=== PATIENT | female | born 1940 | race Caucasian/White ===

== ENCOUNTER → 2016-06-26 | Outpatient (CLI) | payer OTHER ==
[~2016-06-26] MED LIST: GLIP-116 OR; LISI30TA36 OR; METF-312 OR; METO-158 OR; SIMV-13 OR
[2016-06-26 08:44] LABS: Basophils # (auto) 0 uL; Basophils % (auto) 0.6 % (0.0-2.0); Eosinophils # (auto) 0.1 uL; Eosinophils % (auto) 1.4 % (0.0-7.0); Hemoglobin 12.9 g/dL (12.2-16.2); Lymphocytes % (auto) 22.9 % (10.0-50.0); Mean Corpuscular Hgb Conc. 31.6 g/dL (32.0-36.0); Mean Platelet Volume 9.8 fL (7.4-10.4); Monocytes # (auto) 0.6 uL; Neutrophils # (auto) 5.9 uL; Neutrophils % (auto) 68.1 % (37.0-80.0); Platelet Count (auto) 235 10^3/uL (140-450); Red Cell Distribution Width 13.5 % (11.6-16.0); White Blood Cell 8.7 10^3/uL (4.4-10.8)
[2016-06-26 09:17] LABS: Albumin 4.1 g/dL (3.4-5.0); BUN/Creatinine Ratio 13.9; Bilirubin, Total 0.5 mg/dL (0.2-1.0); Calcium 9.2 mg/dL (8.5-10.1); Potassium 3.7 mmol/L (3.5-5.1); Total Protein 7.5 g/dL (6.4-8.2)
== END | disposition home or self-care (01) ==
LOC: LAB 06:48
PROVIDERS: ATTEND Internal Medicine
DX: E78.4 Other hyperlipidemia (principal); E11.9 Type 2 diabetes mellitus without complications; I10 Essential (primary) hypertension; Z12.10 Encounter for screening for malignant neoplasm of intestinal tract, unspecified
CPT/HCPCS: 36415; 80053; 80061; 82043; 82270; 83036; 84443; 85025

== ENCOUNTER → 2016-09-25 | Outpatient (CLI) | payer OTHER ==
[2016-09-25 10:31] LABS: Albumin 4.3 g/dL (3.4-5.0); BUN/Creatinine Ratio 20.3; Bilirubin, Total 0.4 mg/dL (0.2-1.0); Calcium 9.7 mg/dL (8.5-10.1); Potassium 4.1 mmol/L (3.5-5.1); Total Protein 7.7 g/dL (6.4-8.2)
== END | disposition home or self-care (01) ==
LOC: LAB 06:30
PROVIDERS: ATTEND Internal Medicine
DX: E11.21 Type 2 diabetes mellitus with diabetic nephropathy (principal); I10 Essential (primary) hypertension; E78.4 Other hyperlipidemia
CPT/HCPCS: 36415; 80053; 83036

== ENCOUNTER → 2017-03-05 | Outpatient (CLI) | payer OTHER ==
[~2017-03-05] MED LIST changes: -METF-312 OR; +METF-370 OR
[2017-03-05 10:30] LABS: Albumin 4.1 g/dL (3.4-5.0); Calcium 9.5 mg/dL (8.5-10.1); Potassium 4.2 mmol/L (3.5-5.1)
[2017-03-05 10:34] LABS: BUN/Creatinine Ratio 21.4
[2017-03-05 10:36] LABS: Bilirubin, Total 0.5 mg/dL (0.2-1.0); Total Protein 7.3 g/dL (6.4-8.2)
== END | disposition home or self-care (01) ==
LOC: LAB 07:23
PROVIDERS: ATTEND Internal Medicine
DX: E11.21 Type 2 diabetes mellitus with diabetic nephropathy (principal); E78.4 Other hyperlipidemia
CPT/HCPCS: 36415; 80053; 83036

== ENCOUNTER → 2017-08-01 | Outpatient (CLI) | payer OTHER ==
[2017-08-01 08:11] LABS: Basophils # (auto) 0.1 uL; Basophils % (auto) 0.8 % (0.0-2.0); Eosinophils # (auto) 0.1 uL; Eosinophils % (auto) 1.8 % (0.0-7.0); Hemoglobin 13.2 g/dL (12.2-16.2); Lymphocytes # (auto) 2.5 uL; Lymphocytes % (auto) 37.8 % (10.0-50.0); Mean Corpuscular Hgb Conc. 33.9 g/dL (32.0-36.0); Mean Corpuscular Volume 94.3 fL (80.0-100.0); Monocytes # (auto) 0.7 uL; Monocytes % (auto) 10.8 % (0.0-12.0); Neutrophils # (auto) 3.2 uL; Neutrophils % (auto) 48.8 % (37.0-80.0); Nucleated Red Blood Cells % 0.1 %; Platelet Count (auto) 221 10^3/uL (140-450); Red Blood Cells 4.13 10^6/uL (4.0-5.20); Red Cell Distribution Width 13.2 % (11.8-14.3); White Blood Cell 6.6 10^3/uL (4.4-10.8)
[2017-08-01 08:40] LABS: Albumin 4.1 g/dL (3.4-5.0); BUN/Creatinine Ratio 21.2; Bilirubin, Total 0.6 mg/dL (0.2-1.0); Calcium 9.8 mg/dL (8.5-10.1); Total Protein 7.3 g/dL (6.4-8.2)
== END | disposition home or self-care (01) ==
LOC: LAB 07:03
PROVIDERS: ATTEND Internal Medicine
DX: Z12.11 Encounter for screening for malignant neoplasm of colon (principal); I10 Essential (primary) hypertension; E11.21 Type 2 diabetes mellitus with diabetic nephropathy; E78.4 Other hyperlipidemia
CPT/HCPCS: 36415; 80053; 80061; 82043; 82270; 82306; 83036; 84443; 85025

== ENCOUNTER → 2017-10-02 | Outpatient (CLI) | payer OTHER | END | disposition home or self-care (01) | LOC: LAB 10:00 | PROVIDERS: ATTEND Physician Assistant | DX: L72.0 Epidermal cyst (principal); I10 Essential (primary) hypertension; E78.5 Hyperlipidemia, unspecified; E11.9 Type 2 diabetes mellitus without complications ==

== ENCOUNTER → 2018-07-22 | Outpatient (CLI) | payer OTHER ==
[2018-07-22 09:52] LABS: Basophils # (auto) 0 uL; Basophils % (auto) 0.7 % (0.0-2.0); Eosinophils # (auto) 0.1 uL; Eosinophils % (auto) 2.2 % (0.0-7.0); Hematocrit 39.7 % (36.0-46.0); Hemoglobin 13.3 g/dL (12.2-16.2); Lymphocytes # (auto) 1.8 uL; Lymphocytes % (auto) 36.6 % (10.0-50.0); Mean Corpuscular Hemoglobin 31.9 pg (28.0-32.0); Mean Corpuscular Hgb Conc. 33.4 g/dL (32.0-36.0); Mean Corpuscular Volume 95.4 fL (80.0-100.0); Monocytes # (auto) 0.4 uL; Neutrophils # (auto) 2.6 uL; Neutrophils % (auto) 51.5 % (37.0-80.0); Platelet Count (auto) 216 10^3/uL (140-450); Red Blood Cells 4.16 10^6/uL (4.0-5.20); Red Cell Distribution Width 13.5 % (11.8-14.3)
[2018-07-22 11:23] LABS: Potassium 3.9 mmol/L (3.5-5.1)
[2018-07-22 12:20] LABS: BUN/Creatinine Ratio 19.2; Bilirubin, Total 0.5 mg/dL (0.2-1.0); Calcium 9.5 mg/dL (8.5-10.1); Total Protein 7.3 g/dL (6.4-8.2)
== END | disposition home or self-care (01) ==
LOC: LAB 07:48
PROVIDERS: ATTEND Internal Medicine
DX: Z00.00 Encounter for general adult medical examination without abnormal findings (principal); Z12.11 Encounter for screening for malignant neoplasm of colon; I10 Essential (primary) hypertension; E78.5 Hyperlipidemia, unspecified
CPT/HCPCS: 36415; 80053; 80061; 82043; 82274; 83036; 84443; 85025

== ENCOUNTER → 2019-05-01 | Outpatient (CLI) | payer OTHER ==
[~2019-05-01] MED LIST changes: -GLIP-116 OR; +GLIP10TA9 OR; -LISI30TA36 OR; +LISI30TA4 OR
[2019-05-01 11:15] LABS: Urine Bacteria FEW /hpf (None Seen); Urine Blood Negative /uL (Negative); Urine Specific Gravity 1.007 (1.001-1.035); Urine WBC 49 /hpf (0 - 5)
[2019-05-01 11:23] LABS: Basophils # (auto) 0.1 uL; Basophils % (auto) 1.1 % (0.0-2.0); Eosinophils # (auto) 0.1 uL; Eosinophils % (auto) 1.2 % (0.0-7.0); Hematocrit 40.3 % (36.0-46.0); Hemoglobin 13.4 g/dL (12.2-16.2); Lymphocytes # (auto) 1.7 uL; Lymphocytes % (auto) 25.7 % (10.0-50.0); Mean Corpuscular Hemoglobin 32.3 pg (28.0-32.0); Mean Corpuscular Hgb Conc. 33.3 g/dL (32.0-36.0); Monocytes # (auto) 0.6 uL; Monocytes % (auto) 8.5 % (0.0-12.0); Neutrophils # (auto) 4.1 uL; Neutrophils % (auto) 63.5 % (37.0-80.0); Platelet Count (auto) 231 10^3/uL (140-450); Red Blood Cells 4.15 10^6/uL (4.0-5.20); Red Cell Distribution Width 13.9 % (11.8-14.3); White Blood Cell 6.5 10^3/uL (4.4-10.8)
[2019-05-01 11:37] LABS: Albumin 3.9 g/dL (3.4-5.0); Calcium 8.9 mg/dL (8.5-10.1); Potassium 4.1 mmol/L (3.5-5.1)
[2019-05-01 11:43] LABS: BUN/Creatinine Ratio 18.5; Bilirubin, Total 0.6 mg/dL (0.2-1.0); Total Protein 7.3 g/dL (6.4-8.2)
[2019-05-01 11:48] LABS: Free T4 (Free Thyroxine) 1.33 ng/dL (0.89-1.76)
[2019-05-01 11:49] LABS: Folate (Folic Acid) 11.1 ng/mL (5.38-24)
[2019-05-02 04:05] LABS: RPR Non Reactive (Non Reactive)
== END | disposition home or self-care (01) ==
LOC: LAB 10:30
PROVIDERS: ATTEND Internal Medicine
DX: R41.3 Other amnesia (principal)
CPT/HCPCS: 36415; 80053; 81001; 82306; 82607; 82746; 84439; 84443; 85025; 85652; 86592

== ENCOUNTER → 2020-03-23 | Outpatient (CLI) | payer OTHER ==
[2020-03-23 07:58] LABS: Basophils # (auto) 0.1 10 ^3/uL (0-0.2); Basophils % (auto) 1.1 % (0.0-2.0); Eosinophils # (auto) 0.1 10 ^3/uL (0-0.8); Eosinophils % (auto) 1.3 % (0.0-7.0); Hematocrit 39.1 % (36.0-46.0); Lymphocytes # (auto) 1.8 10 ^3/uL (0.4-5.4); Lymphocytes % (auto) 28.1 % (10.0-50.0); Mean Corpuscular Hgb Conc. 33.2 g/dL (32.0-36.0); Mean Corpuscular Volume 96.3 fL (80.0-100.0); Monocytes # (auto) 0.7 10 ^3/uL (0-1.3); Monocytes % (auto) 10.6 % (0.0-12.0); Neutrophils # (auto) 3.7 10 ^3/uL (1.6-8.6); Neutrophils % (auto) 58.9 % (37.0-80.0); Platelet Count (auto) 282 10^3/uL (140-450); Red Blood Cells 4.06 10^6/uL (4.0-5.20); Red Cell Distribution Width 14.6 % (11.8-14.3); White Blood Cell 6.3 10^3/uL (4.4-10.8)
[2020-03-23 08:25] LABS: Albumin 3.9 g/dL (3.4-5.0); Potassium 4.1 mmol/L (3.5-5.1)
[2020-03-23 08:44] LABS: BUN/Creatinine Ratio 15.7; Bilirubin, Total 0.8 mg/dL (0.2-1.0); Calcium 9.3 mg/dL (8.5-10.1); Total Protein 7.4 g/dL (6.4-8.2)
== END | disposition home or self-care (01) ==
LOC: LAB 07:22
PROVIDERS: ATTEND Internal Medicine
DX: E11.22 Type 2 diabetes mellitus with diabetic chronic kidney disease (principal); N18.9 Chronic kidney disease, unspecified; E11.69 Type 2 diabetes mellitus with other specified complication; F03.90 Unspecified dementia, unspecified severity, without behavioral disturbance, psychotic disturbance, mood disturbance, and anxiety; D51.9 Vitamin B12 deficiency anemia, unspecified; E55.9 Vitamin D deficiency, unspecified; E78.5 Hyperlipidemia, unspecified
CPT/HCPCS: 36415; 80053; 80061; 82043; 82306; 82607; 83036; 84443; 85025

== ENCOUNTER → 2020-06-23 | Outpatient (CLI) | payer OTHER ==
[2020-06-23 11:30] LABS: Urine Bacteria MANY /hpf (None Seen); Urine Blood TRACE /uL (Negative); Urine Specific Gravity 1.013 (1.001-1.035); Urine WBC 233 /hpf (0 - 5)
== END | disposition home or self-care (01) ==
LOC: LAB 07:28
PROVIDERS: ATTEND Internal Medicine
DX: D51.9 Vitamin B12 deficiency anemia, unspecified (principal); E55.9 Vitamin D deficiency, unspecified
CPT/HCPCS: 81001; 82306; 82607

== ENCOUNTER 2020-07-13 15:59 | Emergency (ER) | payer OTHER ==
[~2020-07-13] VITALS: Ht 154.9 cm; Wt 54.4 kg
[2020-07-13 15:59] VITALS: BP 163/77
== END 2020-07-13 18:43 | disposition home or self-care (01) ==
LOC: ER 15:59
DX: S09.90XA Unspecified injury of head, initial encounter (principal); E11.9 Type 2 diabetes mellitus without complications; Z79.899 Other long term (current) drug therapy; W19.XXXA Unspecified fall, initial encounter; Y93.89 Activity, other specified; Y92.89 Other specified places as the place of occurrence of the external cause; Y99.8 Other external cause status
CPT/HCPCS: 70450; 70486

== ENCOUNTER 2020-10-02 23:45 | Inpatient (IN) | payer OTHER ==
[~2020-10-02] VITALS: Ht 157.5 cm; Wt 54.4 kg
[2020-10-03 00:33] LABS: Basophils # (auto) 0.1 10 ^3/uL (0-0.2); Basophils % (auto) 0.7 % (0.0-2.0); Eosinophils # (auto) 0.1 10 ^3/uL (0-0.8); Eosinophils % (auto) 0.6 % (0.0-7.0); Hematocrit 38.6 % (36.0-46.0); Hemoglobin 12.9 g/dL (12.2-16.2); Lymphocytes # (auto) 1.8 10 ^3/uL (0.4-5.4); Lymphocytes % (auto) 19.7 % (10.0-50.0); Mean Corpuscular Hemoglobin 31.9 pg (28.0-32.0); Mean Corpuscular Hgb Conc. 33.5 g/dL (32.0-36.0); Mean Corpuscular Volume 95.2 fL (80.0-100.0); Monocytes # (auto) 0.8 10 ^3/uL (0-1.3); Monocytes % (auto) 8.9 % (0.0-12.0); Neutrophils # (auto) 6.6 10 ^3/uL (1.6-8.6); Neutrophils % (auto) 70.1 % (37.0-80.0); Platelet Count (auto) 251 10^3/uL (140-450); Red Blood Cells 4.06 10^6/uL (4.0-5.20); Red Cell Distribution Width 13.7 % (11.8-14.3); White Blood Cell 9.4 10^3/uL (4.4-10.8)
[2020-10-03 00:49] LABS: BUN/Creatinine Ratio 18.2; Potassium 3.4 mmol/L (3.5-5.1)
[2020-10-03] MEDS ORDERED: HALOPERIDOL LACTATE 5 MG/ML INJ VIAL IM ONE (02:30)
[2020-10-03] MEDS ORDERED: diphenhdrAMINE HCL 50 MG/1 ML VL IM ONE (02:30)
[2020-10-03] MEDS ORDERED: SODIUM CHLORIDE 0.9% 1,000 ML IV ONE (08:45)
[2020-10-03] MEDS ORDERED: MORPHINE SULF INJ 2 MG/ML SYRINGE 1ML IV PRN ×3 (15:30→17:15)
[2020-10-03] MEDS ORDERED: NITROGLYCERIN 0.4 MG SL TAB SL PRN ×2 (15:30→17:15)
[2020-10-03] MEDS ORDERED: POTASSIUM CHL 20 Meq TABLET PO ONE (17:15)
[2020-10-03] MEDS ORDERED: HYDROcodone-ACET 5/325MG TAB PO PRN (17:15)
[2020-10-03] MEDS ORDERED: DEXTROSE (50%) 50ML SYRG IV PRN (17:15)
[2020-10-03] MEDS ORDERED: ALUM & MAG HYDROX-SIMETH LIQ(MAALOX) 30 ML PO PRN (17:15)
[2020-10-03] MEDS ORDERED: QUEtiapine FUMARATE 25 MG TAB PO ONE (17:15)
[2020-10-03] MEDS ORDERED: cefTRIAXone 1GM/50ML D5W 50 ML IV ONE (17:15)
[2020-10-03] MEDS ORDERED: ONDANSETRON HCL 4 MG/2 ML VIAL IV PRN (17:15)
[2020-10-03] MEDS ORDERED: HALOPERIDOL LACTATE 5 MG/ML INJ VIAL IM PRN ×2 (17:15→22:00)
[2020-10-03] MEDS ORDERED: DOCUSATE SOD 100 MG CAP PO PRN (17:15)
[2020-10-03] MEDS ORDERED: LORazepam 0.5 MG TAB PO PRN (17:15)
[2020-10-03] MEDS ORDERED: ACETAMINOPHEN 325 MG TAB PO PRN (17:15)
[2020-10-03 17:30] LABS: Alcohol, Urine < 3.0 mg/dL (0-10); Amphetamine Screen, Urine NEGATIVE (NEGATIVE); Barbiturate Scree,Urine NEGATIVE (NEGATIVE); Benzodiazephine Screen, Urine NEGATIVE (NEGATIVE); Cannabinoid Screen, Urine NEGATIVE (NEGATIVE); Cocaine Screen, Urine NEGATIVE (NEGATIVE); Opiate Scree,Urine NEGATIVE (NEGATIVE); Phencyclidine Screen, Urine NEGATIVE (NEGATIVE)
[2020-10-03] MEDS ORDERED: CYANOCOBALAMIN (B-12) 1000 MCG/1 ML VIAL SUBCUT ONE (17:30)
[2020-10-03] MEDS ORDERED: ENOXAPARIN SOD 40 MG/0.4 ML SYRINGE SC SCH (18:00)
[2020-10-03 18:02] LABS: Urine Bacteria NONE SEEN /hpf (None Seen); Urine Blood 1+ /uL (Negative); Urine Hyaline Cast FEW /lpf (0 - 2); Urine Mucus FEW (None Seen); Urine Specific Gravity 1.015 (1.001-1.035); Urine WBC 1 /hpf (0 - 5)
[2020-10-03] MEDS: SODIUM CHLORIDE 0.9% 1,000 ML IV SCH (18:04)
[2020-10-03 18:06] LABS: Cholesterol 197 mg/dL (< 200); HDL Cholesterol 78 mg/dL (40-59); LDL Cholesterol 100 mg/dL (< 100); Triglycerides 56 mg/dL (< 150)
[2020-10-03 19:50] VITALS: BP 133/78
[2020-10-03 20:14] VITALS: BP 133/78
[2020-10-03] MEDS ORDERED: SIMV-13 PO (21:29)
[2020-10-03] MEDS ORDERED: LISI30TA4 PO (21:29)
[2020-10-03] MEDS ORDERED: METF-370 PO (21:29)
[2020-10-03] MEDS ORDERED: DONE1TAB88 PO (21:29)
[2020-10-03] MEDS ORDERED: GLIP2.5T28 PO (21:29)
[2020-10-03] MEDS ORDERED: METO-289 PO (21:29)
[2020-10-03] MEDS: ATORVASTATIN 20 MG TAB PO SCH (21:53)
[2020-10-03] MEDS: ACCU-CHEK COMFORT CURVE STRIP VI SCH (21:54)
[2020-10-03] MEDS: METOPROLOL TARTRATE 50 MG TAB PO SCH (21:54)
[2020-10-03] MEDS ORDERED: QUEtiapine FUMARATE 25 MG TAB PO SCH (22:00)
[2020-10-03] MEDS: MIRTAZAPINE 30 MG TAB PO SCH (22:07)
[2020-10-03] MEDS: InsuLIN REG 1unit/0.01ml Soln (100units/ml) SC SCH (22:09)
[2020-10-04 04:38] VITALS: BP 114/59
[2020-10-04] MEDS: InsuLIN REG 1unit/0.01ml Soln (100units/ml) SC SCH ×4 (06:04→21:27)
[2020-10-04] MEDS: ACCU-CHEK COMFORT CURVE STRIP VI SCH ×4 (06:07→21:23)
[2020-10-04 06:43] LABS: Basophils # (auto) 0.1 10 ^3/uL (0-0.2); Basophils % (auto) 0.8 % (0.0-2.0); Eosinophils # (auto) 0.1 10 ^3/uL (0-0.8); Eosinophils % (auto) 1.2 % (0.0-7.0); Hematocrit 40.5 % (36.0-46.0); Hemoglobin 13.7 g/dL (12.2-16.2); Lymphocytes # (auto) 1.9 10 ^3/uL (0.4-5.4); Lymphocytes % (auto) 26.8 % (10.0-50.0); Mean Corpuscular Hemoglobin 31.9 pg (28.0-32.0); Mean Corpuscular Hgb Conc. 33.8 g/dL (32.0-36.0); Mean Corpuscular Volume 94.3 fL (80.0-100.0); Monocytes # (auto) 0.7 10 ^3/uL (0-1.3); Monocytes % (auto) 10.1 % (0.0-12.0); Neutrophils # (auto) 4.3 10 ^3/uL (1.6-8.6); Neutrophils % (auto) 61.1 % (37.0-80.0); Nucleated Red Blood Cells % 0.1 %; Platelet Count (auto) 238 10^3/uL (140-450); Red Blood Cells 4.29 10^6/uL (4.0-5.20); Red Cell Distribution Width 13.6 % (11.8-14.3); White Blood Cell 7.1 10^3/uL (4.4-10.8)
[2020-10-04 07:00] LABS: INR 1.03 (0.9-1.15)
[2020-10-04 07:09] LABS: Potassium 3.9 mmol/L (3.5-5.1)
[2020-10-04 07:20] LABS: Albumin 3.3 g/dL (3.4-5.0); BUN/Creatinine Ratio 25.9; Bilirubin, Total 0.7 mg/dL (0.2-1.0); Calcium 8.8 mg/dL (8.5-10.1); Phosphorus 4.6 mg/dL (2.5-4.90); Total Protein 6.3 g/dL (6.4-8.2)
[2020-10-04] MEDS: cefTRIAXone 1GM/50ML D5W 50 ML IV SCH (08:36)
[2020-10-04 09:00] VITALS: BP 104/57
[2020-10-04] MEDS ORDERED: POTASSIUM CHL 20 Meq TABLET PO SCH (10:00)
[2020-10-04] MEDS ORDERED: LISINOPRIL 20 MG TAB PO SCH (10:00)
[2020-10-04] MEDS: CYANOCOBALAMIN 500 MCG TAB PO SCH (10:10)
[2020-10-04] MEDS: THIAMINE 100mg/ml INJ (200mg/2ml VIAL) IV SCH (10:10)
[2020-10-04] MEDS: SODIUM CHLORIDE 0.9% 1,000 ML IV SCH (10:13)
[2020-10-04] MEDS: METOPROLOL TARTRATE 50 MG TAB PO SCH ×2 (10:13→21:23)
[2020-10-04] MEDS ORDERED: CYANOCOBALAMIN (B-12) 1000 MCG/1 ML VIAL SUBCUT ONE (11:30)
[2020-10-04] MEDS ORDERED: CHOLECALCIFEROL (VITD3) 2,000 UNIT CAP/TAB PO ONE (11:30)
[2020-10-04 13:00] VITALS: BP 95/46
[2020-10-04 17:00] VITALS: BP 139/69
[2020-10-04 21:00] VITALS: BP 141/68
[2020-10-04] MEDS: ATORVASTATIN 20 MG TAB PO SCH (21:22)
[2020-10-04] MEDS: MIRTAZAPINE 30 MG TAB PO SCH (21:23)
[2020-10-05 05:00] VITALS: BP 104/57
[2020-10-05] MEDS: InsuLIN REG 1unit/0.01ml Soln (100units/ml) SC SCH ×4 (06:05→22:20)
[2020-10-05] MEDS: ACCU-CHEK COMFORT CURVE STRIP VI SCH ×4 (06:07→22:18)
[2020-10-05] MEDS: SODIUM CHLORIDE 0.9% 1,000 ML IV SCH (06:29)
[2020-10-05] MEDS: cefTRIAXone 1GM/50ML D5W 50 ML IV SCH (08:35)
[2020-10-05 09:00] VITALS: BP 103/56
[2020-10-05] MEDS: THIAMINE 100mg/ml INJ (200mg/2ml VIAL) IV SCH (10:00)
[2020-10-05] MEDS: LISINOPRIL 20 MG TAB PO SCH (10:00)
[2020-10-05] MEDS: CHOLECALCIFEROL (VITD3) 2,000 UNIT CAP/TAB PO SCH (10:47)
[2020-10-05] MEDS: CYANOCOBALAMIN 500 MCG TAB PO SCH (10:47)
[2020-10-05] MEDS: METOPROLOL TARTRATE 50 MG TAB PO SCH (10:47)
[2020-10-05 13:00] VITALS: BP 101/41
[2020-10-05 17:00] VITALS: BP 105/64
[2020-10-05] MEDS: LORazepam 2MG/ML-1ML VIAL IV PRN (19:56)
[2020-10-05 22:00] VITALS: BP 147/88
[2020-10-05] MEDS ORDERED: MIRTAZAPINE 30 MG TAB PO SCH (22:00)
[2020-10-05] MEDS: ATORVASTATIN 20 MG TAB PO SCH (22:18)
[2020-10-06] MEDS: LORazepam 2MG/ML-1ML VIAL IV PRN (01:56)
[2020-10-06] MEDS: ACCU-CHEK COMFORT CURVE STRIP VI SCH ×4 (06:30→21:57)
[2020-10-06] MEDS: InsuLIN REG 1unit/0.01ml Soln (100units/ml) SC SCH ×4 (06:32→22:00)
[2020-10-06 09:00] VITALS: BP 141/81
[2020-10-06] MEDS ORDERED: LORazepam 2MG/ML-1ML VIAL IV PRN (11:00)
[2020-10-06] MEDS: THIAMINE 100mg/ml INJ (200mg/2ml VIAL) IV SCH (11:00)
[2020-10-06] MEDS: CYANOCOBALAMIN 500 MCG TAB PO SCH (12:52)
[2020-10-06] MEDS: CHOLECALCIFEROL (VITD3) 2,000 UNIT CAP/TAB PO SCH (12:54)
[2020-10-06] MEDS: LISINOPRIL 20 MG TAB PO SCH (12:55)
[2020-10-06 13:00] VITALS: BP 122/62
[2020-10-06 17:00] VITALS: BP 96/56
[2020-10-06 18:41] VITALS: BP 101/51
[2020-10-06] MEDS: ATORVASTATIN 20 MG TAB PO SCH (22:06)
[2020-10-06] MEDS: QUEtiapine FUMARATE 25 MG TAB PO SCH (22:06)
[2020-10-07] MEDS: ACCU-CHEK COMFORT CURVE STRIP VI SCH ×4 (06:00→22:00)
[2020-10-07] MEDS: InsuLIN REG 1unit/0.01ml Soln (100units/ml) SC SCH ×4 (06:05→22:05)
[2020-10-07 09:00] VITALS: BP 102/66
[2020-10-07] MEDS: LISINOPRIL 20 MG TAB PO SCH (10:00)
[2020-10-07] MEDS: THIAMINE 100mg/ml INJ (200mg/2ml VIAL) IV SCH (10:51)
[2020-10-07] MEDS: QUEtiapine FUMARATE 25 MG TAB PO SCH ×2 (10:52→22:34)
[2020-10-07] MEDS: CHOLECALCIFEROL (VITD3) 2,000 UNIT CAP/TAB PO SCH (10:52)
[2020-10-07] MEDS: CYANOCOBALAMIN 500 MCG TAB PO SCH (10:52)
[2020-10-07 12:50] VITALS: BP 118/62
[2020-10-07 17:00] VITALS: BP 130/60
[2020-10-07 21:38] VITALS: BP 127/70
[2020-10-07] MEDS: ATORVASTATIN 20 MG TAB PO SCH (22:34)
[2020-10-08 05:06] VITALS: BP 119/73
[2020-10-08] MEDS: InsuLIN REG 1unit/0.01ml Soln (100units/ml) SC SCH ×3 (06:46→17:00)
[2020-10-08] MEDS: ACCU-CHEK COMFORT CURVE STRIP VI SCH ×3 (06:46→17:00)
[2020-10-08 08:56] VITALS: BP 104/55
[2020-10-08] MEDS ORDERED: CYANOCOBALAMIN 500 MCG TAB PO SCH (10:00)
[2020-10-08] MEDS: LISINOPRIL 20 MG TAB PO SCH (10:00)
[2020-10-08] MEDS: THIAMINE 100mg/ml INJ (200mg/2ml VIAL) IV SCH (10:00)
[2020-10-08] MEDS: QUEtiapine FUMARATE 25 MG TAB PO SCH (10:20)
[2020-10-08] MEDS: CHOLECALCIFEROL (VITD3) 2,000 UNIT CAP/TAB PO SCH (10:20)
[2020-10-08 13:00] VITALS: BP 98/52
[2020-10-08 15:44] VITALS: BP 98/52
== END 2020-10-08 18:30 | disposition hospice, home (50) | DRG 71 ==
LOC: EDUNIT# 23:45 → ER 23:45 → EDBD 23:45 → TELE 10-03 17:11 → TELE-CENTR 10-03 19:54 → CENTRAL 10-04 20:43
PROVIDERS: ADMIT Hospitalist; ATTEND Internal Medicine
DX: G93.41 Metabolic encephalopathy (principal); I16.9 Hypertensive crisis, unspecified; F03.90 Unspecified dementia, unspecified severity, without behavioral disturbance, psychotic disturbance, mood disturbance, and anxiety; R62.7 Adult failure to thrive; E87.6 Hypokalemia; E53.8 Deficiency of other specified B group vitamins; I10 Essential (primary) hypertension; Z51.5 Encounter for palliative care; E11.65 Type 2 diabetes mellitus with hyperglycemia; E78.5 Hyperlipidemia, unspecified; Z79.84 Long term (current) use of oral hypoglycemic drugs; Z20.822 Contact with and (suspected) exposure to COVID-19; F29 Unspecified psychosis not due to a substance or known physiological condition; F10.20 Alcohol dependence, uncomplicated; Z82.0 Family history of epilepsy and other diseases of the nervous system; Z82.49 Family history of ischemic heart disease and other diseases of the circulatory system; Z83.3 Family history of diabetes mellitus; F17.200 Nicotine dependence, unspecified, uncomplicated; Z79.899 Other long term (current) drug therapy
CPT/HCPCS: 36415; 70450; 71045; 80048; 80053; 80061; 80307; 81001; 82306; 82607; 82962; 83036; 83735; 83880; 84100; 84443; 84484; 85025; 85610; 85730; 87040; 87086; 87426; 93005; 96365; 96372; G0378; J0696; J1815

== ENCOUNTER 2020-10-18 13:04 | Inpatient (IN) | payer OTHER ==
[~2020-10-18] VITALS: Ht 157.5 cm; Wt 55.5 kg
[~2020-10-18 13:04] MED LIST changes: +DONE1TAB88 PO; -GLIP10TA9 OR; +GLIP2.5T28 PO; -LISI30TA4 OR; +LISI30TA4 PO; -METF-370 OR; +METF-370 PO; -METO-158 OR; +METO-289 PO; -SIMV-13 OR; +SIMV-13 PO
[2020-10-18 14:15] LABS: Basophils # (auto) 0.1 10 ^3/uL (0-0.2); Basophils % (auto) 1.1 % (0.0-2.0); Eosinophils # (auto) 0.1 10 ^3/uL (0-0.8); Hemoglobin 11.7 g/dL (12.2-16.2); Lymphocytes # (auto) 1.7 10 ^3/uL (0.4-5.4); Lymphocytes % (auto) 24.8 % (10.0-50.0); Mean Corpuscular Hemoglobin 32.3 pg (28.0-32.0); Mean Corpuscular Hgb Conc. 34.3 g/dL (32.0-36.0); Mean Corpuscular Volume 94.1 fL (80.0-100.0); Monocytes # (auto) 0.7 10 ^3/uL (0-1.3); Monocytes % (auto) 10.2 % (0.0-12.0); Neutrophils # (auto) 4.2 10 ^3/uL (1.6-8.6); Neutrophils % (auto) 61.9 % (37.0-80.0); Platelet Count (auto) 205 10^3/uL (140-450); Red Blood Cells 3.61 10^6/uL (4.0-5.20); Red Cell Distribution Width 13.1 % (11.8-14.3); White Blood Cell 6.8 10^3/uL (4.4-10.8)
[2020-10-18 14:26] LABS: Lactic Acid w/Reflex 2.2 mmol/L (0.4-2.0)
[2020-10-18 14:48] LABS: Urine WBC None Seen /hpf (0 - 5)
[2020-10-18 15:17] LABS: Albumin 3.4 g/dL (3.4-5.0); BUN/Creatinine Ratio 17.8; Potassium 4.4 mmol/L (3.5-5.1)
[2020-10-18 15:20] LABS: Bilirubin, Total 0.2 mg/dL (0.2-1.0); Total Protein 6.3 g/dL (6.4-8.2)
[2020-10-18 15:31] LABS: Urine Bacteria NONE SEEN /hpf (None Seen); Urine Blood Negative /uL (Negative); Urine Specific Gravity 1.016 (1.001-1.035)
[2020-10-18] MEDS ORDERED: SODIUM CHLORIDE 0.9% 1,000 ML IV ONE (15:45)
[2020-10-18] MEDS ORDERED: LORazepam 2MG/ML-1ML VIAL IV ONE (16:30)
[2020-10-18] MEDS ORDERED: LORazepam 2MG/ML-1ML VIAL ONE (16:41)
[2020-10-18] MEDS ORDERED: LORazepam 2MG/ML-1ML VIAL IV PRN (17:15)
[2020-10-18] MEDS ORDERED: DEXTROSE (50%) 50ML SYRG IV PRN (17:30)
[2020-10-18] MEDS: metFORMIN HYDROCHLORIDE 500 MG TAB PO SCH (18:08)
[2020-10-18] MEDS ORDERED: dilTIAZem 25 MG/5 ML VIAL IV ONE (21:00)
[2020-10-18] MEDS: InsuLIN REG 1unit/0.01ml Soln (100units/ml) SC SCH (21:40)
[2020-10-18] MEDS: ACCU-CHEK COMFORT CURVE STRIP VI SCH (21:40)
[2020-10-18] MEDS: ATORVASTATIN 20 MG TAB PO SCH (21:41)
[2020-10-18] MEDS ORDERED: LABETALOL HCL 5 MG/ML 4ML SYRINGE IV ONE (23:30)
[2020-10-19] MEDS: metFORMIN HYDROCHLORIDE 500 MG TAB PO SCH (07:00)
[2020-10-19] MEDS: ACCU-CHEK COMFORT CURVE STRIP VI SCH ×5 (07:00→22:00)
[2020-10-19] MEDS: InsuLIN REG 1unit/0.01ml Soln (100units/ml) SC SCH ×5 (07:00→22:03)
[2020-10-19 07:30] VITALS: BP 129/72
[2020-10-19] MEDS ORDERED: IPRATROPIUM BROM 0.5 MG/2.5ML INH SOL NEB ONE (07:45)
[2020-10-19] MEDS ORDERED: FUROSEMIDE 20 MG/2 ML VIAL IV ONE (07:45)
[2020-10-19] MEDS ORDERED: ALBUTEROL SULF 2.5 MG/0.5ML(0.5%) NEB SOLN NEB ONE (07:45)
[2020-10-19 08:53] LABS: Albumin 3.3 g/dL (3.4-5.0); Anion Gap 14 (5-15); BUN/Creatinine Ratio 20.2; Blood Urea Nitrogen 18 mg/dL (7-18); Calcium 8.8 mg/dL (8.5-10.1); Carbon Dioxide 17 mmol/L (21-32); Chloride 108 mmol/L (98-107); GFR African American 79 mL/min; GFR Non-African American 65 mL/min; Potassium 4.7 mmol/L (3.5-5.1); Sodium 139 mmol/L (136-145)
[2020-10-19 09:00] LABS: Alanine Aminotransferase 26 U/L (13-56); Alkaline Phosphatase 66 U/L (45-117); Aspartate Aminotransferase 30 U/L (15-37); Bilirubin, Total 0.8 mg/dL (0.2-1.0); Total Protein 6.9 g/dL (6.4-8.2)
[2020-10-19 09:06] LABS: Glucose 404 mg/dL (74-106)
[2020-10-19] MEDS ORDERED: LISINOPRIL 20 MG TAB PO SCH (10:00)
[2020-10-19] MEDS ORDERED: GLIPIZIDE 2.5 MG PO SCH (10:00)
[2020-10-19] MEDS: DONEPEZIL HYDROCHLORIDE 5 MG TAB PO SCH (10:43)
[2020-10-19] MEDS: METOPROLOL TARTRATE 25 MG TAB PO SCH ×2 (10:45→22:06)
[2020-10-19] MEDS ORDERED: ASPirin 81 mg TAB PO ONE (13:15)
[2020-10-19] MEDS ORDERED: QUEtiapine FUMARATE 25 MG TAB PO ONE (13:15)
[2020-10-19] MEDS ORDERED: FUROSEMIDE 40 MG/4 ML VIAL IV SCH (18:00)
[2020-10-19 22:00] VITALS: BP 109/65
[2020-10-19] MEDS: QUEtiapine FUMARATE 25 MG TAB PO SCH (22:05)
[2020-10-19] MEDS: ATORVASTATIN 20 MG TAB PO SCH (22:06)
[2020-10-20] MEDS ORDERED: ACET-1156 PO (01:06)
[2020-10-20] MEDS ORDERED: CYA100I IM (01:06)
[2020-10-20] MEDS ORDERED: TRAM50TA2 PO (01:06)
[2020-10-20] MEDS ORDERED: QUET25TA37 PO (01:06)
[2020-10-20] MEDS ORDERED: FURO20TA3 PO (01:06)
[2020-10-20] MEDS ORDERED: CHOL20007 PO (01:06)
[2020-10-20] MEDS ORDERED: LORA0.5T20 PO (01:06)
[2020-10-20] MEDS ORDERED: LISI-716 PO (01:06)
[2020-10-20 05:00] VITALS: BP 86/48
[2020-10-20 05:52] LABS: Basophils # (auto) 0.1 10 ^3/uL (0-0.2); Basophils % (auto) 0.3 % (0.0-2.0); Eosinophils # (auto) 0 10 ^3/uL (0-0.8); Eosinophils % (auto) 0.1 % (0.0-7.0); Hematocrit 37.6 % (36.0-46.0); Hemoglobin 12.8 g/dL (12.2-16.2); Lymphocytes # (auto) 1.3 10 ^3/uL (0.4-5.4); Lymphocytes % (auto) 7.2 % (10.0-50.0); Mean Corpuscular Hemoglobin 32.2 pg (28.0-32.0); Mean Corpuscular Hgb Conc. 34.1 g/dL (32.0-36.0); Mean Corpuscular Volume 94.5 fL (80.0-100.0); Monocytes # (auto) 1.6 10 ^3/uL (0-1.3); Monocytes % (auto) 8.5 % (0.0-12.0); Neutrophils # (auto) 15.4 10 ^3/uL (1.6-8.6); Neutrophils % (auto) 83.9 % (37.0-80.0); Nucleated Red Blood Cells % 0.1 %; Platelet Count (auto) 233 10^3/uL (140-450); Red Blood Cells 3.98 10^6/uL (4.0-5.20); Red Cell Distribution Width 13.2 % (11.8-14.3); White Blood Cell 18.3 10^3/uL (4.4-10.8)
[2020-10-20] MEDS: ACCU-CHEK COMFORT CURVE STRIP VI SCH ×4 (06:08→21:54)
[2020-10-20 06:09] LABS: Calcium 8.7 mg/dL (8.5-10.1); Potassium 3.9 mmol/L (3.5-5.1)
[2020-10-20 06:11] LABS: BUN/Creatinine Ratio 39.8
[2020-10-20] MEDS: InsuLIN REG 1unit/0.01ml Soln (100units/ml) SC SCH ×4 (06:16→21:54)
[2020-10-20 09:00] VITALS: BP 89/53
[2020-10-20] MEDS: METOPROLOL TARTRATE 25 MG TAB PO SCH (10:00)
[2020-10-20] MEDS ORDERED: LISINOPRIL 20 MG TAB PO SCH (10:00)
[2020-10-20] MEDS: DONEPEZIL HYDROCHLORIDE 5 MG TAB PO SCH (11:07)
[2020-10-20] MEDS: ASPirin 81 mg TAB PO SCH (11:07)
[2020-10-20] MEDS: QUEtiapine FUMARATE 25 MG TAB PO SCH ×2 (11:09→18:08)
[2020-10-20] MEDS ORDERED: LORazepam 2MG/ML-1ML VIAL IV PRN (11:45)
[2020-10-20 13:00] VITALS: BP 81/46
[2020-10-20 17:00] VITALS: BP 114/61
[2020-10-20] MEDS: ATORVASTATIN 20 MG TAB PO SCH (21:50)
[2020-10-20 22:00] VITALS: BP 112/59
[2020-10-21 05:00] VITALS: BP 121/67
[2020-10-21] MEDS: ACCU-CHEK COMFORT CURVE STRIP VI SCH ×4 (06:11→21:18)
[2020-10-21] MEDS: InsuLIN REG 1unit/0.01ml Soln (100units/ml) SC SCH ×4 (06:14→21:21)
[2020-10-21 06:38] LABS: Basophils # (auto) 0.1 10 ^3/uL (0-0.2); Basophils % (auto) 1.3 % (0.0-2.0); Eosinophils # (auto) 0.2 10 ^3/uL (0-0.8); Eosinophils % (auto) 1.8 % (0.0-7.0); Hematocrit 36.3 % (36.0-46.0); Hemoglobin 12.7 g/dL (12.2-16.2); Lymphocytes # (auto) 1.7 10 ^3/uL (0.4-5.4); Lymphocytes % (auto) 16.1 % (10.0-50.0); Mean Corpuscular Hemoglobin 33.3 pg (28.0-32.0); Mean Corpuscular Hgb Conc. 34.9 g/dL (32.0-36.0); Mean Corpuscular Volume 95.3 fL (80.0-100.0); Monocytes # (auto) 1.2 10 ^3/uL (0-1.3); Monocytes % (auto) 11.4 % (0.0-12.0); Neutrophils # (auto) 7.4 10 ^3/uL (1.6-8.6); Neutrophils % (auto) 69.4 % (37.0-80.0); Nucleated Red Blood Cells % 0.1 %; Platelet Count (auto) 202 10^3/uL (140-450); Red Blood Cells 3.81 10^6/uL (4.0-5.20); Red Cell Distribution Width 13.6 % (11.8-14.3); White Blood Cell 10.6 10^3/uL (4.4-10.8)
[2020-10-21 09:00] VITALS: BP 115/56
[2020-10-21] MEDS: ASPirin 81 mg TAB PO SCH (10:21)
[2020-10-21] MEDS: DONEPEZIL HYDROCHLORIDE 5 MG TAB PO SCH (10:22)
[2020-10-21] MEDS ORDERED: CYANOCOBALAMIN (B-12) 1000 MCG/1 ML VIAL SUBCUT ONE (12:00)
[2020-10-21 13:00] VITALS: BP 139/79
[2020-10-21 15:01] VITALS: BP 139/79
[2020-10-21 17:00] VITALS: BP 128/72
[2020-10-21] MEDS: QUEtiapine FUMARATE 25 MG TAB PO SCH (18:03)
[2020-10-21] MEDS: ATORVASTATIN 20 MG TAB PO SCH (21:18)
[2020-10-21 22:00] VITALS: BP 106/60
[2020-10-22 05:00] VITALS: BP 142/76
[2020-10-22] MEDS: ACCU-CHEK COMFORT CURVE STRIP VI SCH ×2 (06:24→12:05)
[2020-10-22] MEDS: InsuLIN REG 1unit/0.01ml Soln (100units/ml) SC SCH ×2 (06:25→12:05)
[2020-10-22 08:15] VITALS: BP 144/70
[2020-10-22 09:00] VITALS: BP 144/70
[2020-10-22] MEDS: ASPirin 81 mg TAB PO SCH (10:06)
[2020-10-22] MEDS: DONEPEZIL HYDROCHLORIDE 5 MG TAB PO SCH (10:06)
[2020-10-22 12:59] VITALS: BP 116/72
== END 2020-10-22 16:10 | disposition hospice, home (50) | DRG 280 ==
LOC: ER 13:04 → EDBD 13:04 → OVERFLOW 17:13 → WEST WING 10-19 10:31 → TELE-WESTW 10-19 10:32
PROVIDERS: ADMIT Nurse Practitioner Acute Care; ATTEND Internal Medicine
DX: I21.4 Non-ST elevation (NSTEMI) myocardial infarction (principal); I50.43 Acute on chronic combined systolic (congestive) and diastolic (congestive) heart failure; J96.01 Acute respiratory failure with hypoxia; G93.40 Encephalopathy, unspecified; F02.81 Dementia in other diseases classified elsewhere, unspecified severity, with behavioral disturbance; R65.10 Systemic inflammatory response syndrome (SIRS) of non-infectious origin without acute organ dysfunction; Z20.822 Contact with and (suspected) exposure to COVID-19; S09.90XA Unspecified injury of head, initial encounter; E11.65 Type 2 diabetes mellitus with hyperglycemia; E53.8 Deficiency of other specified B group vitamins; G30.9 Alzheimer's disease, unspecified; I11.0 Hypertensive heart disease with heart failure; M19.90 Unspecified osteoarthritis, unspecified site; Z51.5 Encounter for palliative care; Z66 Do not resuscitate; W07.XXXA Fall from chair, initial encounter; Y93.9 Activity, unspecified; Y92.9 Unspecified place or not applicable; Y99.9 Unspecified external cause status; Z79.84 Long term (current) use of oral hypoglycemic drugs; Z82.0 Family history of epilepsy and other diseases of the nervous system; Z79.899 Other long term (current) drug therapy; Z79.891 Long term (current) use of opiate analgesic; Z79.01 Long term (current) use of anticoagulants; Z81.8 Family history of other mental and behavioral disorders; Z83.3 Family history of diabetes mellitus; Z79.82 Long term (current) use of aspirin
CPT/HCPCS: 36415; 36600; 70450; 71045; 72192; 80048; 80053; 81001; 82805; 82962; 83605; 83880; 84484; 85025; 87040; 87081; 87426; 93005; 93306; 93970; 94660; 96361; 96374; 96375; G0378; J1815; J3490